=== PATIENT | female | born 1985 | race Caucasian/White ===

== ENCOUNTER 2016-05-23 15:24 | Emergency (ER) | payer OTHER ==
[~2016-05-23] VITALS: Ht 167.6 cm; Wt 102.3 kg
[~2016-05-23 15:24] MED LIST: NORCO 325 MG-51 TAB PO; ZOFRAN 4MG T4 MG/TAB PO
[2016-05-23 15:29] VITALS: BP 129/81; TEMP 98.3
[2016-05-23] MEDS ORDERED: EFFEXOR100 MG PO (15:32)
[2016-05-23 16:09] LABS: PH 5 (5-8); URINE APPEARANCE Hazy; URINE BACTERIA None Seen /hpf; URINE BILIRUBIN Negative (NEGATIVE); URINE BLOOD Negative (NEGATIVE); URINE COLOR Yellow; URINE GLUCOSE Negative (NEGATIVE); URINE KETONE 1+ (NEGATIVE); URINE RBC 0-2 /hpf; URINE UROBILINOGEN Negative (NEGATIVE); URINE WBC 0-2 /hpf
[2016-05-23] MEDS ORDERED: PHENERGAN W/CO120 M1 PO (16:15)
[2016-05-23] MEDS ORDERED: PHENERGAN 25 TA25 MG PO (16:15)
[2016-05-23 17:27] VITALS: PULSE 72
== END 2016-05-23 17:29 | disposition home or self-care (01) ==
LOC: COL.ER 15:24
PROVIDERS: Emergency Medicine
DX: K52.9 Noninfective gastroenteritis and colitis, unspecified (principal); J06.9 Acute upper respiratory infection, unspecified
CPT/HCPCS: J1885; J2550; J7030